=== PATIENT | male | born 1975 | race Caucasian/White ===

== ENCOUNTER 2020-03-28 12:19 | Emergency (ER) | payer OTHER ==
[~2020-03-28] VITALS: Ht 188 cm; Wt 99.8 kg
[2020-03-28] MEDS ORDERED: KEFLEX500 M1 PO (12:50)
[2020-03-28 13:11] VITALS: BP 122/74
== END 2020-03-28 13:12 | disposition home or self-care (01) ==
LOC: M.ERS 12:19
DX: S61.411A Laceration without foreign body of right hand, initial encounter (principal); X58.XXXA Exposure to other specified factors, initial encounter; Y93.89 Activity, other specified; Y92.89 Other specified places as the place of occurrence of the external cause; Y99.8 Other external cause status